=== PATIENT | female | born 1960 | race Caucasian/White ===

== ENCOUNTER → 2020-12-25 16:05 | Outpatient (CLI) | payer OTHER, SELFPAY ==
--- NOTE | 2020-12-25 | DI.MG.S_ITS ---
BILATERAL DIGITAL SCREENING MAMMOGRAM 3D/2D WITH CAD: 12/25/2020 CLINICAL: Routine screening. Comparison is made to exams dated: 03/06/2018 mammogram, 04/01/2016 mammogram, and 10/09/2013 mammogram - [facility]. There are scattered fibroglandular elements in both breasts. Current study was also evaluated with a Computer Aided Detection (CAD) system. There are benign calcifications in both breasts. There also is a biopsy clip in the right breast. No significant masses, calcifications, or other findings are seen in either breast. There has been no significant interval change. IMPRESSION: BENIGN There is no mammographic evidence of malignancy. A 1 year screening mammogram is recommended. This exam was interpreted at Station ID: [id number]. NOTE: For mammograms, a report in lay terms will be sent to the patient. Approximately 15% of breast malignancies will not be visualized mammographically. In the management of a palpable breast mass, a negative mammogram must not discourage biopsy of a clinically suspicious lesion. Electronically Signed By: René Pitts acr/penrad:12/25/2020 16:33:14 letter sent: Normal Exam ACR BI-RADS Category 2: Benign Finding(s) [id number]
== END ==
PROVIDERS: Visit Provider Family Medicine
DX: Z12.31 Encounter for screening mammogram for malignant neoplasm of breast (principal)
CPT/HCPCS: 77063; 77067

== ENCOUNTER → 2021-07-21 07:13 | Outpatient (CLI) | payer OTHER, SELFPAY ==
[2021-07-21 07:45] LABS: COVID19 -Nasal RAPID Negative (Negative)
== END ==
PROVIDERS: Visit Provider Physician Assistant
DX: Z20.822 Contact with and (suspected) exposure to COVID-19 (principal); R05 Cough; R53.83 Other fatigue
CPT/HCPCS: 87635

== ENCOUNTER → 2022-03-11 09:06 | Outpatient (CLI) | payer OTHER, SELFPAY ==
--- NOTE | 2022-03-11 | DI.MG.S_ITS ---
BILATERAL DIGITAL SCREENING MAMMOGRAM 3D/2D WITH CAD: 03/11/2022 CLINICAL: Routine screening. Comparison is made to exams dated: 12/25/2020 mammogram, 03/06/2018 mammogram, and 04/01/2016 mammogram - [facility]. The tissue of both breasts is heterogeneously dense. This may lower the sensitivity of mammography. Current study was also evaluated with a Computer Aided Detection (CAD) system. There are benign calcifications in both breasts. There also is a biopsy clip in the right breast. No significant masses, calcifications, or other findings are seen in either breast. There has been no significant interval change. IMPRESSION: BENIGN There is no mammographic evidence of malignancy. A 1 year screening mammogram is recommended. This exam was interpreted at Station ID: [id number]. NOTE: For mammograms, a report in lay terms will be sent to the patient. Approximately 15% of breast malignancies will not be visualized mammographically. In the management of a palpable breast mass, a negative mammogram must not discourage biopsy of a clinically suspicious lesion. Electronically Signed By: Harish medellin/valerie:03/11/2022 10:10:29 letter sent: Normal Exam ACR BI-RADS Category 2: Benign Finding(s) [id number]
== END ==
PROVIDERS: PCP Family Medicine; Referring Provider Family Medicine; Visit Provider Family Medicine
DX: Z12.31 Encounter for screening mammogram for malignant neoplasm of breast (principal)
CPT/HCPCS: 77063; 77067

== ENCOUNTER → 2022-10-08 09:44 | Outpatient (CLI) | payer OTHER, SELFPAY ==
--- NOTE | 2022-10-08 | DI.RAD.S_ITS ---
PROCEDURE: XR PELVIS 1-2V INDICATIONS: left hip pain TECHNIQUE: 1 view(s) of the pelvis acquired. COMPARISON: None. FINDINGS: Bones: No fractures identified on this single projection. No dislocations. Mild bilateral hip DJD. No suspicious bony lesions. Soft tissues: Visualized bowel gas pattern is normal. No suspicious soft tissue calcifications. IMPRESSION: Mild bilateral hip DJD. Dictated by: Jordy Doran M.D. on 10/08/2022 at 11:09 Approved by: Jordy Doran M.D. on 10/08/2022 at 11:11
--- NOTE | 2022-10-08 | DI.RAD.S_ITS ---
PROCEDURE: XR KNEE LT 3V INDICATIONS: left knee pain TECHNIQUE: 3 views of the knee were acquired. COMPARISON: [facility], , KNEE 3V LEFT, 10/18/2012, 16:16. FINDINGS: Bones: No fractures or dislocations. No suspicious bony lesions. Mild tricompartmental degenerative joint disease. Soft tissues: Trace joint effusion. No suspicious soft tissue calcifications. IMPRESSION: Mild degenerative joint disease. Dictated by: Driss Schofield M.D. on 10/08/2022 at 12:13 Approved by: Driss Schofield M.D. on 10/08/2022 at 12:14
== END ==
PROVIDERS: PCP Family Medicine; Referring Provider Family Medicine; Visit Provider Family Medicine
DX: M16.0 Bilateral primary osteoarthritis of hip (principal); M17.12 Unilateral primary osteoarthritis, left knee; M25.552 Pain in left hip; M25.562 Pain in left knee
CPT/HCPCS: 72170; 73562

== ENCOUNTER → 2023-08-10 09:41 | Outpatient (CLI) | payer OTHER, SELFPAY ==
--- NOTE | 2023-08-10 | DI.RAD.S_ITS ---
PROCEDURE: FL BARIUM SWALLOW W SPEECH INDICATIONS: DYSPHAGIA COMPARISON: None. TECHNIQUE: Examination was conducted in conjunction with speech pathology per standard protocol. In the lateral projection, filming was performed of the patient swallowing. AP projection filming may also be performed with patient swallowing. COMPARISON: FINDINGS: Function: The oral preparatory phase appears normal, with proper containment. The subsequent oral propulsive phase, pharyngeal phase, and esophageal phase of swallowing also appear normal with all proffered substances. No laryngotracheal penetration or aspiration. No pathologic vallecular pooling. Contrast is seen pooling within the mid and distal esophagus. Morphology: No cricopharyngeal bar is identified. No cervical esophageal webs. No Zenker's diverticulum. No strictures. IMPRESSION: No laryngotracheal penetration or aspiration. Esophageal dysmotility, not completely evaluated. Please refer to the dedicated speech therapy swallowing evaluation report which will be independently generated. Dictated by: Eze Fortune M.D. on 08/10/2023 at 11:52 Approved by: Eze Fortune M.D. on 08/10/2023 at 11:54
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
== END ==
PROVIDERS: Family Provider Family Medicine; PCP Family Medicine; Referring Provider Family Medicine; Visit Provider Family Medicine
DX: R13.10 Dysphagia, unspecified (principal); K22.89 Other specified disease of esophagus
CPT/HCPCS: 74230; 92611

== ENCOUNTER → 2024-10-04 07:57 | Outpatient (CLI) | payer MEDICARE, OTHER, SELFPAY ==
--- NOTE | 2024-10-04 08:00 | DI.MG.S_ITS ---
BILATERAL DIGITAL SCREENING MAMMOGRAM 3D/2D WITH CAD: 10/04/2024 CLINICAL: Routine screening. Comparison is made to exams dated: 03/11/2022 mammogram, 12/25/2020 mammogram, and 03/06/2018 mammogram - [facility]. The breasts are heterogeneously dense, which may obscure small masses (category c / 51-75% glandular tissue). Current study was also evaluated with a Computer Aided Detection (CAD) system. There is a focal asymmetry in the right breast at 2 o'clock anterior depth. No other significant masses, calcifications, or other findings are seen in either breast. IMPRESSION: INCOMPLETE: NEED ADDITIONAL IMAGING EVALUATION The focal asymmetry in the right breast is indeterminate. Additional views with possible ultrasound are recommended. Based on the Tyrer Cuzick model (a risk assessment model) the patient's lifetime risk is 9.0% and her 10 year risk is 4.3%. According to the ACR, ACS, and NCCN guidelines, an annual breast MRI exam along with mammogram is recommended if the patient's lifetime risk is 20% or greater. This exam was interpreted at Station ID: [id number]. NOTE: For mammograms, a report in lay terms will be sent to the patient. Approximately 15% of breast malignancies will not be visualized mammographically. In the management of a palpable breast mass, a negative mammogram must not discourage biopsy of a clinically suspicious lesion. Electronically Signed By: Sowmya parisi/valerie:10/04/2024 10:12:30 letter sent: Additional Imaging Needed ACR BI-RADS Category 0: Incomplete: Need Additional Imaging Evaluation
== END ==
PROVIDERS: Family Provider Family Medicine; PCP Family Medicine; Referring Provider Family Medicine; Visit Provider Family Medicine
DX: Z12.31 Encounter for screening mammogram for malignant neoplasm of breast (principal); Z80.3 Family history of malignant neoplasm of breast; R92.333 Mammographic heterogeneous density, bilateral breasts
CPT/HCPCS: 77063; 77067

== ENCOUNTER → 2024-12-20 11:56 | Outpatient (CLI) | payer MEDICARE, OTHER, SELFPAY ==
--- NOTE | 2024-12-20 11:59 | DI.MG.S_ITS ---
UNILATERAL RIGHT DIGITAL DIAGNOSTIC MAMMOGRAM 3D/2D WITH ADDITIONAL VIEWS: 12/20/2024 CLINICAL: Additional evaluation requested from prior study. Comparison is made to exams dated: 10/04/2024 mammogram, 03/11/2022 mammogram, and 12/25/2020 mammogram - [facility]. The breasts are heterogeneously dense, which may obscure small masses (category c / 51-75% glandular tissue). There is a possible 0.6 cm oval focal asymmetry with an obscured margin in the right breast at 2 o'clock middle depth. This is not confirmed in additional views and appears is less prominent. No other significant masses or calcifications are seen in the breast. IMPRESSION: INCOMPLETE: NEED ADDITIONAL IMAGING EVALUATION The possible 0.6 cm oval focal asymmetry in the right breast resembles a cyst, a lymph node, or a fibroadenoma and is indeterminate. An ultrasound is recommended for further evaluation and is scheduled to immediately follow this examination. Based on the Tyrer Cuzick model (a risk assessment model) the patient's lifetime risk is 9.0% and her 10 year risk is 4.3%. According to the ACR, ACS, and NCCN guidelines, an annual breast MRI exam along with mammogram is recommended if the patient's lifetime risk is 20% or greater. This exam was interpreted at Station ID: [id number]. NOTE: For mammograms, a report in lay terms will be sent to the patient. Approximately 15% of breast malignancies will not be visualized mammographically. In the management of a palpable breast mass, a negative mammogram must not discourage biopsy of a clinically suspicious lesion. Electronically Signed By: Alverto Jimenes M.D. aty/:12/20/2024 12:39:06 letter sent: Additional Imaging Needed ACR BI-RADS Category 0: Incomplete: Need Additional Imaging Evaluation
--- NOTE | 2024-12-20 12:00 | DI.US.S_ITS ---
LIMITED ULTRASOUND OF RIGHT BREAST: 12/20/2024 CLINICAL: Patient returns today to evaluate a focal asymmetry in the right breast. Comparison is made to exams dated: 12/20/2024 mammogram, 10/04/2024 mammogram, 03/11/2022 mammogram, 12/25/2020 mammogram, and 03/06/2018 mammogram - [facility]. Color flow and real-time ultrasound of the right breast 2 o'clock region were performed. Price scale images of the real-time examination were reviewed. There is a 0.6 cm x 0.6 cm wider than tall oval cyst with a smooth internal wall in the right breast at 2 o'clock middle depth 4 cm from the nipple. This oval cyst is hypoechoic with a well-defined boundary and internal echoes. This correlates with mammography findings. Color flow imaging demonstrates that there is no vascularity present. IMPRESSION: PROBABLY BENIGN The 0.6 cm x 0.6 cm wider than tall oval cyst in the right breast is consistent with a complicated cyst and is probably benign. A follow-up right mammogram and an ultrasound in 6 months is recommended to demonstrate stability. Findings and recommendations were conveyed to the patient during today's evaluation. This exam was interpreted at Station ID: [id number]. Electronically Signed By: Alverto Jimenes M.D. aty/:12/20/2024 13:10:42 letter sent: Followup Recommended ACR BI-RADS Category 3: Probably Benign
== END ==
PROVIDERS: Family Provider Family Medicine; PCP Family Medicine; Referring Provider Family Medicine; Visit Provider Family Medicine
DX: R92.8 Other abnormal and inconclusive findings on diagnostic imaging of breast (principal); R92.333 Mammographic heterogeneous density, bilateral breasts; N60.01 Solitary cyst of right breast
CPT/HCPCS: 76642; 77065; G0279

== ENCOUNTER → 2025-01-21 10:51 | Outpatient (CLI) | payer MEDICARE, OTHER, SELFPAY ==
--- NOTE | 2025-01-21 10:53 | DI.RAD.S_ITS ---
PROCEDURE: XR DEXA AXIAL SKELETON INDICATIONS: POSTMENOPAUSAL COMPARISON: [facility], , DEXA AXIAL SKELETON, 02/02/2017, 10:49. FINDINGS: Lumbar Spine: Bone mineral density 0.853 (previously 1.050) g/cm2, T score -1.8 (previously -1.1). Left Femoral Neck: Bone mineral density 0.719 (previously 1.037) g/cm2, T score -1.2 (previously 0.0). Left Hip: Bone mineral density 0.951 (previously 1.130) g/cm2, T score 0.1 (previously 1.0). Fracture Risk Calculation (when applicable): 10-year fracture risk of a major osteoporotic fracture 8.1 percent and of a hip fracture 0.7 percent. (T score greater or equal to -1.0 to: NORMAL) (T score from -1.1 to -2.4: OSTEOPENIA) (T score less than or equal to -2.5: OSTEOPOROSIS) IMPRESSION: Osteopenia--- recommend repeat DEXA in 2-3 years for reassessment. Follow-up guidelines as follows: Osteoporosis: Consider a repeat DEXA and Vertebral Fracture Assessment (VFA) exam in 2 years or sooner if medically necessary, to reassess this patient's status. Osteopenia: Consider a repeat DEXA in 2-3 years to reassess this patient's status, or if there is a new clinical indication. Normal: Consider a repeat DEXA in 5 years or sooner, or if there is a new clinical indication. All treatment decisions require clinical judgment and consideration of individual patient factors, including patient preferences, comorbidities, previous drug use, risk factors not captured in the FRAX model (e.g., frailty, falls, vitamin D deficiency, increased bone turnover, interval significant decline in bone density ) and possible under- or over-estimation of fracture risk by FRAX. In addition, the NOF Guide recommends that FDA-approved medical therapies be considered in postmenopausal women and men age >= 50 years with a: * Hip or vertebral (clinical or morphometric) fracture * T-score of <=-2.5 at the spine or hip * Ten-year fracture probability by FRAX of >= 3% for hip fracture or >=20% for major osteoporotic fracture. Dictated by: Walt Tejada M.D. on 01/21/2025 at 20:10 Approved by: Walt Tejada M.D. on 01/21/2025 at 20:14
== END ==
PROVIDERS: Family Provider Family Medicine; PCP Family Medicine; Referring Provider Family Medicine; Visit Provider Family Medicine
DX: M85.89 Other specified disorders of bone density and structure, multiple sites (principal); Z78.0 Asymptomatic menopausal state
CPT/HCPCS: 77080

== ENCOUNTER → 2025-02-07 08:08 | Outpatient (CLI) | payer MEDICARE, OTHER, SELFPAY ==
--- NOTE | 2025-02-07 16:50 | DI.NM.S_ITS ---
DATE OF SERVICE: 02/07/2025 EXERCISE STRESS TEST INDICATIONS: Shortness of breath. CARDIAC STRESS: The patient underwent exercise stress test under the supervision of an attending staff. The patient walked on Wilbert protocol for 6 minutes and 8 seconds, achieved maximum heart rate of 145, which was 94% of target heart rate. Resting blood pressure 138/90 and peak blood pressure 160/80 with normal blood pressure response. Resting heart rate 86. 7 METs of workload. DOLORES positive 2%. Baseline rhythm sinus with left axis. During stress, significant artifacts making EKG interpretation difficult, however, in the immediate recovery no obvious ischemic changes. No significant arrhythmias. No chest pain. Test was discontinued because of feeling fatigued and weak. CONCLUSION: Exercise stress test did not reveal any obvious inducible ischemic changes. Diminished exercise tolerance. Normal hemodynamic response. No significant arrhythmias. No chest pain. Normal recovery. Overall, low-risk exercise stress test. Nila Ley - [place]/tk/SHEILA doc#: [id number]/job#: [id number] dd: 02/07/2025 16:33:00 dt: 02/07/2025 16:43:00 DICTATING /COPIES TO: Lester Almanzar MD COPIES MNE: KIKI;
== END ==
LOC: NUCM 08:09
PROVIDERS: Family Provider Family Medicine; PCP Family Medicine; Referring Provider Family Medicine; Visit Provider Family Medicine
DX: R06.02 Shortness of breath (principal)
CPT/HCPCS: 93017

== ENCOUNTER 2025-07-01 17:12 | Emergency (ER) | payer MEDICARE, OTHER, SELFPAY ==
[2025-07-01 18:03] VITALS: BP 120/71; PULSE 100; RESP 185; TEMP 36.6; O2SAT 96; BMI 28.3
== END 2025-07-01 22:57 | disposition left against medical advice (07) ==
PROVIDERS: Emergency Provider Emergency Medicine; Family Provider Family Medicine; PCP Family Medicine
DX: Z53.21 Procedure and treatment not carried out due to patient leaving prior to being seen by health care provider (principal)
CPT/HCPCS: 99281

== ENCOUNTER 2025-07-19 05:12 | Emergency (ER) | payer MEDICARE, OTHER, SELFPAY ==
[2025-07-19 05:22] VITALS: BP 183/104; PULSE 96; RESP 28; TEMP 36.9; O2SAT 94; BMI 28.6
--- NOTE | 2025-07-19 05:26 | ED.SOB ---
HPI - SOB/Dyspnea General Chief Complaint: Shortness of Breath/Dyspnea Stated Complaint: SOB, tightness in throat, coughing Time Seen by Provider: 07/19/25 05:26 Source: patient Mode of arrival: Ambulatory Limitations: no limitations History of Present Illness HPI Narrative: 65-year-old female past medical history hypothyroidism, htn, hld, seen 4 times in total in the past month approximately for cough shortness breath wheezing previously prescribed prednisone Z-Jorje albuterol inhaler DuoNeb came in tonight with continued symptoms despite medications being given and negative chest x-rays and negative swabs for viral panel. Patient denies chest pain, leg pain and swelling, fever, chills, bodyaches, sore throat, but does have cough with sputum production. Other than what is stated 14 point review of system is negative. Related Data Home Medications ?Medication ?Instructions ?Recorded ?Confirmed acyclovir 400 mg tablet 400 mg PO DAILY 07/21/21 07/03/25 citalopram 20 mg tablet 20 mg PO DAILY 07/21/21 07/03/25 ALA 600 mg-B7 450 mcg-argin 660 pkg PO 02/15/25 07/03/25 [id number] oral combo pack (Mitochondrial Renewal Kit) albuterol sulfate 90 mcg/actuation 2 puff inhalation Q8H PRN 02/15/25 07/03/25 aerosol inhaler shortness of breath or wheezing cholecalciferol (vitamin D3) 1,250 1,250 mcg PO QMONTH 02/15/25 07/03/25 mcg (50,000 unit) capsule levothyroxine 88 mcg capsule 100 mcg PO DAILY 06/12/25 07/03/25 progesterone micronized 200 mg 200 mg PO ONCE PM 06/12/25 07/03/25 capsule tirzepatide (weight loss) 2.5 2.5 mg SUBCUT QWEEK 06/12/25 07/03/25 mg/0.5 mL subcutaneous pen injector Previous Rx's ?Medication ?Instructions ?Recorded medroxyprogesterone 10 mg tablet See Rx Instructions .Route 06/12/25 (Provera) .COMPLEX #90 days benzonatate 200 mg capsule 200 mg PO BID PRN cough #28 caps 06/27/25 prednisone 20 mg tablet 40 mg (2 x 20 mg) PO DAILY #6 tabs 06/27/25 doxycycline hyclate 100 mg capsule 100 mg PO BID #10 caps 07/19/25 Allergies Allergy/AdvReac Type Severity Reaction Status Date / Time Penicillins Allergy Intermediate Hives Verified 07/19/25 05:22 Review of Systems Review of Systems ROS Unobtainable: All systems reviewed & are unremarkable except as noted in HPI and below Patient History Medical History (Updated 07/19/25 @ 07:06 by Marino Khan, DO) PARISI (dyspnea on exertion) Dysphagia Wheezing IBS (irritable bowel syndrome) Obesity Genital herpes Diverticulitis Meniscus degeneration Osteoarthritis Murmur Chronic sinusitis Urinary incontinence Attention disturbance HLD (hyperlipidemia) Depression Hypothyroid Social History household members: none alcohol intake: former Smoking Status: Never smoker Exam Narrative Exam Narrative: GENERAL: [65] year old patient appears stated age. Well-developed patient, in mild distress. HEAD: Atraumatic. Normocephalic. EYES: Pupils equal round and reactive. Extraocular motions intact. No scleral icterus. No injection or drainage. ENT: Nose without bleeding, purulent drainage. Throat without erythema, tonsillar hypertrophy or exudate. Airway patent. NECK: Trachea midline. Non tender CARDIOVASCULAR: Regular rate and rhythm without murmurs, gallops, or rubs. RESPIRATORY: Decreased breath sounds with coarse rhonchi R base and faint wheeze throughout GASTROINTESTINAL: Abdomen soft, non-tender, nondistended. EXTREMITIES: No edema or joint tenderness. BACK: Nontender without deformity or crepitance. No flank tenderness. NEURO: AOx3. SKIN: No rash or erythema of visible areas Initial Vital Signs Initial Vital Signs: Vital Signs Temperature 98.4 F 07/19/25 05:22 Pulse Rate 96 H 07/19/25 05:22 Respiratory Rate 28 H 07/19/25 05:22 Blood Pressure 183/104 H 07/19/25 05:22 Pulse Oximetry 94 07/19/25 05:22 Oxygen Delivery Method Room Air 07/19/25 05:22 Course Orders Ordered: Discontinued Medications Albuterol/Ipratropium (Albuterol/Ipratropium 3 Ml Ampul) 3 ml INH NOW ONE Stop: 07/19/25 05:26 Methylprednisolone (Methylprednisolone Succ 125 Mg/2 Ml Vial) 125 mg IV NOW ONE Stop: 07/19/25 05:26 Vital Signs Vital signs: Vital Signs - 8 hr 07/19/25 05:22 Temperature 98.4 F Pulse Rate 96 H Respiratory Rate 28 H Blood Pressure 183/104 H Pulse Oximetry 94 Oxygen Delivery Method Room Air MDM - SOB/Dyspnea Imaging Data Chest x-ray: Radiologist's Impression: No acute cardiopulmonary findings MDM Narrative Medical decision making narrative: All lab work, vital signs, nurse triage note, medication list, previous ER visits, and all imaging studies reviewed. Patient given DuoNeb, Solu-Medrol 125mg IV, chest x-ray showed no acute process. COVID flu RSV is negative. Patient also given doxycycline here will be discharged with this prescription. Patient has outpatient appointment with follow up specialist on July 29 has a refill for for prednisone also. Differential diagnosis COVID, flu, RSV, asthmatic bronchitis, COPD, pneumonia. Discharge Plan Departure Patient Disposition: Home Clinical Impression: Pneumonia Qualifiers: Pneumonia type: due to unspecified organism Laterality: right Lung location: lower lobe of lung Qualified Code(s): J18.9 - Pneumonia, unspecified organism Instructions: DI for Pneumonia -- Adult Activity Restrictions/Additional Instructions: Return with new or worsening symptoms. Take your medicine as directed. Follow up with pulmonology appointment as previously scheduled. Prescriptions: New doxycycline hyclate 100 mg capsule 100 mg PO BID Qty: 10 0RF No Action citalopram 20 mg tablet 20 mg PO DAILY acyclovir 400 mg tablet 400 mg PO DAILY levothyroxine 88 mcg capsule 100 mcg PO DAILY benzonatate 200 mg capsule 200 mg PO BID PRN (Reason: cough) Qty: 28 0RF prednisone 20 mg tablet 40 mg PO DAILY Qty: 6 0RF medroxyprogesterone [Provera] 10 mg tablet See Rx Instructions .ROUTE .COMPLEX Qty: 90 1RF Rx Instructions: take two tabs daily x 7 days then once daily thereafter albuterol sulfate 90 mcg/actuation HFA aerosol inhaler 2 puff inhalation Q8H PRN (Reason: shortness of breath or wheezing) cholecalciferol (vitamin D3) 1,250 mcg (50,000 unit) capsule 1,250 mcg PO QMONTH Mitochondrial Renewal Kit 600 mg-450 mcg- 660 mg-75 mg combo pack PO progesterone micronized 200 mg capsule 200 mg PO ONCE PM tirzepatide (weight loss) 2.5 mg/0.5 mL pen injector 2.5 mg SUBCUT QWEEK Rx Instructions: for 4 weeks Referrals: Binh Dover MD [Primary Care Provider, Family Practice] Stand Alone Forms: Patient Portal/API
[2025-07-19] MEDS: methylPREDNISolone succ 125 MG/2 ML VIAL IV (05:35)
--- NOTE | 2025-07-19 05:36 | DI.RAD.S_ITS ---
PROCEDURE: XR CHEST 2V INDICATIONS: cough sob TECHNIQUE: 2 views of the chest were acquired. COMPARISON: [facility], CR, XR CHEST 2V, 06/27/2025, 9:11. FINDINGS: Surgical changes and devices: None. Lungs and pleura: Lungs are clear. No pleural effusions or pneumothorax. Mediastinum: Mediastinal contours are normal. Heart size is normal. Bones and chest wall: No suspicious bony abnormalities. Soft tissues appear unremarkable. IMPRESSION: No acute cardiopulmonary abnormality is seen. There is no significant discrepancy when compared to the overnight preliminary report. Approved by: Harish Alfred M.D. on 07/19/2025 at 8:06
[2025-07-19] MEDS: ALBUTEROL/IPRATROPIUM 3 ML AMPUL INH (05:37)
[2025-07-19 05:41] VITALS: PULSE 95; RESP 22; O2SAT 97
[2025-07-19 05:44] LABS: Add Manual Diff / Slide Review NO; Hematocrit 39.7 % (36-46); Hemoglobin 13.4 g/dL (12.0-16.0); Lymphocytes Absolute Auto 2100 /uL (1100-4500); Mean Corpuscular HGB Conc 33.8 % (30-36); Mean Corpuscular Hemoglobin 32.2 PG (26-34); Mean Corpuscular Volume 95.0 fL (80-100); Platelet Count 321 X10^3/uL (150-400)
[2025-07-19 05:53] LABS: Alanine Aminotransferase 37 IU/L (<35); Albumin 4.3 g/dL (3.5-5.0); Albumin Globulin Ratio 1.5 (1.0-2.8); Alkaline Phosphatase 65 U/L (38-126); Blood Urea Nitrogen 9 mg/dL (7-17); Calcium 8.8 mg/dL (8.4-10.2); Carbon Dioxide 25 mmol/L (22-32); Chloride 104 mmol/L (98-107); Estimated Glomerular Filt Rate > 60 mL/min (>60); Globulin 2.8 g/dL (1.7-4.1); Glucose 84 mg/dL (70-99); HEMOLYSIS < 15 (0-50); Potassium 3.8 mmol/L (3.4-5.1); Sodium 136 mmol/L (137-145); Total Protein 7.1 g/dL (6.3-8.2)
[2025-07-19 06:02] LABS: NT-proBNP (BNP-Adult 18+) 34 pg/mL (<125)
[2025-07-19 06:19] LABS: Influenza A - CEPHEID Flu A NEGATIVE (NEGATIVE); Influenza B - CEPHEID Flu B NEGATIVE (NEGATIVE)
[2025-07-19 06:26] LABS: COVID-19 CEPHEID 4-PLEX PCR Negative (Negative)
[2025-07-19] MEDS: DOXYCYCLINE HYCLATE 100 MG TABLET PO (07:16)
== END 2025-07-19 07:18 | disposition home or self-care (01) ==
PROVIDERS: Emergency Provider Family Medicine; Family Provider Family Medicine; PCP Family Medicine
DX: J18.9 Pneumonia, unspecified organism (principal)
CPT/HCPCS: 36415; 71046; 80053; 83880; 85025; 87637; 94640; 96374; 99284; J2919

== ENCOUNTER → 2025-08-06 13:07 | Outpatient (CLI) | payer MEDICARE, OTHER, SELFPAY | LOC: RESP 13:08 | PROVIDERS: Family Provider Family Medicine; PCP Family Medicine; Referring Provider Family Medicine; Visit Provider Family Medicine | DX: R06.02 Shortness of breath (principal); R06.2 Wheezing; Z87.891 Personal history of nicotine dependence | CPT/HCPCS: 94060; 94726; 94729 ==

== ENCOUNTER → 2025-08-28 11:41 | Outpatient (CLI) | payer MEDICARE, OTHER, SELFPAY ==
[2025-08-28 12:30] LABS: Add Manual Diff / Slide Review NO; Hematocrit 40.9 % (36-46); Hemoglobin 14.0 g/dL (12.0-16.0); Lymphocytes Absolute Auto 1500 /uL (1100-4500); Mean Corpuscular HGB Conc 34.1 % (30-36); Mean Corpuscular Hemoglobin 31.9 PG (26-34); Mean Corpuscular Volume 93.4 fL (80-100); Platelet Count 316 X10^3/uL (150-400)
== END ==
PROVIDERS: Family Provider Family Medicine; PCP Family Medicine; Referring Provider Internal Medicine; Visit Provider Internal Medicine
DX: J45.41 Moderate persistent asthma with (acute) exacerbation (principal); Z91.09 Other allergy status, other than to drugs and biological substances
CPT/HCPCS: 36415; 82785; 85025; 86003